=== PATIENT | male | born 1980 | race Caucasian/White ===

== ENCOUNTER 2017-07-27 09:33 | Day surgery (SDC) | payer OTHER ==
[~2017-07-27] VITALS: Ht 177.8 cm; Wt 72.6 kg
[2017-07-27] MEDS ORDERED: LIDOCAINE 2% 100 MG/5 ML UJET TP ONE (12:41)
[2017-07-27] MEDS ORDERED: fentaNYL 0.05 MG/ML VIAL ONE (12:41)
[2017-07-27] MEDS ORDERED: MIDAZOLAM 2 MG/2 ML VIAL ONE ×2 (12:41)
[2017-07-27] MEDS ORDERED: MIDAZOLAM 2 MG/2 ML VIAL IVP ONE (13:35)
[2017-07-27] MEDS ORDERED: fentaNYL 0.05 MG/ML VIAL IVP ONE (15:15)
== END 2017-07-27 13:29 | disposition home or self-care (01) ==
LOC: MDS 09:33 → MMU 09:34 → MDS 13:28
PROVIDERS: ATTEND Internal Medicine Gastroenterology
DX: K64.4 Residual hemorrhoidal skin tags (principal); E66.3 Overweight; Z87.891 Personal history of nicotine dependence; Z79.899 Other long term (current) drug therapy; Z79.84 Long term (current) use of oral hypoglycemic drugs; Z68.28 Body mass index [BMI] 28.0-28.9, adult
CPT/HCPCS: 45378; J2250; J3010